=== PATIENT | female | born 1945 | race Caucasian/White ===

== ENCOUNTER 2022-02-25 09:46 | Emergency (ER) | payer MEDICARE ==
[~2022-02-25] VITALS: Ht 157.5 cm; Wt 63.5 kg
[2022-02-25 10:17] LABS: BASOPHILS ABSOLUTE AUTO 0.04 K/mm3 (0.00-0.23); BASOPHILS PERCENT AUTO 1 % (0-2); EOSINOPHILS ABSOLUTE AUTO 0.03 K/mm3 (0.00-0.68); EOSINOPHILS PERCENT AUTO 0 % (0-6); Hematocrit 40.7 % (33.0-51.0); Hemoglobin 13.1 g/dL (11.5-16.0); IMMATURE GRAN ABSOLUTE AUTO 0.02 K/mm3 (0.00-0.10); IMMATURE GRAN PERCENT AUTO 0 % (0-1); LYMPHOCYTES ABSOLUTE AUTO 1.46 K/mm3 (0.84-5.20); LYMPHOCYTES PERCENT AUTO 18 % (21-46); MONOCYTES ABSOLUTE AUTO 0.55 K/mm3 (0.16-1.47); MONOCYTES PERCENT AUTO 7 % (4-13); Mean Corpuscular HGB 27.3 pg (26.0-34.0); Mean Corpuscular HGB Conc 32.2 g/dL (31.5-36.5); Mean Corpuscular Volume 85 fL (80-100); Mean Platelet Volume 10.2 fL (9.1-12.4); NEUTROPHILS ABSOLUTE AUTO 5.85 K/mm3 (1.96-9.15); NEUTROPHILS PERCENT AUTO 74 % (41-73); Platelet Count 328 K/mm3 (150-400); RDW Coefficient Variation 13.2 % (11.7-14.2); RDW Standard Deviation 41.1 fL (35.1-46.3); White Blood Cell Count 7.95 K/mm3 (4.00-11.30)
[2022-02-25 10:47] LABS: Bilirubin, Total 0.5 mg/dL (0.1-1.0); Bun/Creatinine Ratio 23.1 (12.0-20.0); Calcium, Blood 9.4 mg/dL (8.5-10.1); Creatinine, Blood 0.69 mg/dL (0.40-1.00); Potassium, Blood 4.1 mmol/L (3.5-5.5)
[2022-02-25 11:54] LABS: Source, Urine Clean Catch
[2022-02-25 12:00] LABS: Appearance, Urine Clear (Clear); Bilirubin, Urine Neg (Neg); Blood, Urine 1+ (Neg); Color, Urine Yellow (P-Yellow); Glucose Qualitative, Urine Neg (Neg); Ketones, Urine Neg (Neg); Leukocyte Esterase, Urine 1+ (Neg); Nitrite, Urine Neg (Neg); Protein, Urine 1+ (Neg); Specific Gravity, Urine 1.005 (1.003-1.022); Urobilinogen, Urine NORM (Normal)
[2022-02-25 12:08] LABS: Bacteria Rare /hpf; Red Blood Cells, Urine 0-2 /hpf (0-2); Squamous Epithelial Cells Rare /hpf (Few); White Blood Cells, Urine 0-2 /hpf (0-5)
[2022-02-25 12:09] LABS: Transitional Epithelial Cells Rare /hpf (0-Rare)
== END 2022-02-25 14:20 | disposition home or self-care (01) ==
LOC: ER 09:46
PROVIDERS: Physician Assistant
DX: R10.9 Unspecified abdominal pain (principal); R19.09 Other intra-abdominal and pelvic swelling, mass and lump; Z88.2 Allergy status to sulfonamides
CPT/HCPCS: 74177; 80053; 81001; 83690; 85025; 87086; Q9967

== ENCOUNTER 2022-03-14 08:58 | Inpatient (IN) | payer MEDICARE, BC ==
[~2022-03-14] VITALS: Ht 160 cm; Wt 61.2 kg
[2022-03-14 10:19] LABS: BASOPHILS ABSOLUTE AUTO 0.03 K/mm3 (0.00-0.23); BASOPHILS PERCENT AUTO 0 % (0-2); EOSINOPHILS ABSOLUTE AUTO 0.01 K/mm3 (0.00-0.68); EOSINOPHILS PERCENT AUTO 0 % (0-6); Hematocrit 39.5 % (33.0-51.0); Hemoglobin 13.2 g/dL (11.5-16.0); IMMATURE GRAN ABSOLUTE AUTO 0.07 K/mm3 (0.00-0.10); IMMATURE GRAN PERCENT AUTO 1 % (0-1); LYMPHOCYTES ABSOLUTE AUTO 1.01 K/mm3 (0.84-5.20); LYMPHOCYTES PERCENT AUTO 8 % (21-46); MONOCYTES ABSOLUTE AUTO 0.96 K/mm3 (0.16-1.47); MONOCYTES PERCENT AUTO 8 % (4-13); Mean Corpuscular HGB 26.8 pg (26.0-34.0); Mean Corpuscular HGB Conc 33.4 g/dL (31.5-36.5); Mean Corpuscular Volume 80 fL (80-100); Mean Platelet Volume 9.6 fL (9.1-12.4); NEUTROPHILS ABSOLUTE AUTO 10.73 K/mm3 (1.96-9.15); NEUTROPHILS PERCENT AUTO 84 % (41-73); Platelet Count 590 K/mm3 (150-400); RDW Coefficient Variation 12.6 % (11.7-14.2); RDW Standard Deviation 36.8 fL (35.1-46.3); Red Blood Cell Count 4.92 M/mm3 (3.80-5.20); White Blood Cell Count 12.81 K/mm3 (4.00-11.30)
[2022-03-14 10:50] LABS: Albumin, Blood 2.8 g/dL (3.4-5.0); Albumin/Globulin Ratio 0.7 (0.8-1.8); Bilirubin, Total 0.5 mg/dL (0.1-1.0); Bun/Creatinine Ratio 17.5 (12.0-20.0); Creatinine, Blood 0.63 mg/dL (0.40-1.00); Globulin, Blood 4.2 g/dL (2.2-4.0); Potassium, Blood 4.2 mmol/L (3.5-5.5)
--- NOTE | 2022-03-14 19:54 | NUR ---
SHIFT SUMMARY PT IS WAITING FOR DR. STOVALL TO CONSULT. PT IS TOLERATING CLEAR LIQUIDS. PT HAS DENIED PAIN AND NAUSEA SINCE ARRIVING TO THE UNIT. PT IS INDEPENDENT IN THE ROOM. REPORT GIVEN TO EDY ALVES.
--- NOTE | 2022-03-15 04:44 | NUR ---
CEMENT BASED MATERIALS PUMP TENDER SUMMARY PT AAOX4 AND INDEPENDENT IN THE ROOM. PT HAS STILL HAD SOME NAUSEA AND VOMITING OFF/ON THROUGH THE NIGHT, MEDICATED WITH ZOFRAN. PAIN WELL MANAGED WITH 25 MCG OF IV FENTANYL, ONLY HAD TO GIVE ONCE THIS SHIFT. VSS, WILL CONTINUE TO MONITOR.
[2022-03-15 04:49] LABS: Hematocrit 37.8 % (33.0-51.0); Hemoglobin 11.9 g/dL (11.5-16.0); Mean Corpuscular HGB 26.4 pg (26.0-34.0); Mean Corpuscular HGB Conc 31.5 g/dL (31.5-36.5); Mean Corpuscular Volume 84 fL (80-100); Mean Platelet Volume 9.7 fL (9.1-12.4); Platelet Count 540 K/mm3 (150-400); RDW Standard Deviation 39.7 fL (35.1-46.3); White Blood Cell Count 11.13 K/mm3 (4.00-11.30)
[2022-03-15 05:17] LABS: Bun/Creatinine Ratio 15.4 (12.0-20.0); Calcium, Blood 8.8 mg/dL (8.5-10.1); Creatinine, Blood 0.58 mg/dL (0.40-1.00); Potassium, Blood 4.1 mmol/L (3.5-5.5)
--- NOTE | 2022-03-15 09:19 | NUR ---
Reviewed chart and discussed case with Dr Claros including overal prognosis. Spoke with Primary RN Severo and reviewed Dr Sunshine's note. Supportive visit with Pt this AM. Pt resting in bed and is A&O. Engaged in therapeutic listening as Pt expresses concerns regarding her mother and . 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 She relays her understanding of oncologist's conversation. Reviewed current plan of care including plan for careteam to attempt an acute transfer to [facility]. Continued therapeutic listening as Pt reports uncertainty of wanting to transfer to [facility] for the possibility of littel benefit towards her prognosis. Engaged in therapeutic discussion regarding options including option of considering hospice pending her goals and values. Educated on hospice philosophy with V/U made by Pt. Pt requests assistance with speaking to her when he arrives. She expresses appreciation. Spoke with Dr Nicole and discussed case. Palliative Care will F/U for supportive visit when family arrives.
--- NOTE | 2022-03-15 10:37 | NUR ---
F/U visit as Pt's spouse has arrived. Therapeutic listening and emotional support provided as spouse Antonio is intermittently tearful. Reviewed plan of care and answered questions. Discussed goals of care and continued therapeutic listening. Encouraged Pt and spouse to discuss values and fears. Spouse appears to be leaning towards hospice but would like to discuss further with Pt to determine her goals. Pt and spouse express appreciation and report no other concerns at this time. Palliative Care will remain available for supportive visits.
--- NOTE | 2022-03-15 11:05 | NUR ---
Spiritual Care visit. Pt. is awake in bed and welcomes my visit. Spouse is present. Pt. is unsettled about the recent diagnosis, and verbalizes the need to "make decisions." Pt. displays evidence of stress and grief. Listen empathetically and give pastoral care with a comforting presence. Pt. is a woman of [place] and verbalized gratitude for spiritual care as pts. major account manager is out of town on vacation. Established rapport with Pt. and spouse. Prayed for Pt. and will remain available to the family. Pt. and spouse verbalize gratitude for the spiritual care visit.
--- NOTE | 2022-03-15 15:36 | NUR ---
Spoke with Dr Nicole and discussed case. Pt has elected to pursue hospice services. Spoke with Pt and spouse. Pt agreeable to trial low dose Roxanol. Placed comfort care order and Roxanol 5mg SL Q 3 Hours PRN per V/O from Dr Nicole. Will increase Roxanol and add other comfort medications as needed. Spoke with Primary RN Severo and discussed case. Palliative Care will remain available.
--- NOTE | 2022-03-15 16:31 | NUR ---
Spiritual Care visit (Follow up) After recieving notification that Pt. has chosen home hospice, Pt. is awake in bed and spouse Antonio is present. They welcome my visit. Pt. displays evidence of having peace and trust while Antonio displays evidence of acceptance of the confort care decision. Pastoral sexual abuse counsellor with a calming presence is given. [place] with Pt. and spouse. Both verbalize gratitude for the Spiritual Care visit.
--- NOTE | 2022-03-15 16:47 | NUR ---
SHIFT SUMMARY PATIENT ALERT AND ORIENTED. INDEPENDENT TO BATHROOM. TOLERATING SIPS OF CLEAR LIQUIDS. OCCASIONALLY NAUSEATED AND VOMITS. MEDICATED PER EMAR. ABD PAIN IS CONTROLLED WITH IV FENTANYL IN AM, STARTING ORAL ROXANOL THIS AFTERNOON. ABD IS DISTENDED AND TENDER. PATIENT REPORTS FREQUENT BELCHING, NO BM, OCCASIONAL GAS. BT ARE ACTIVE. VOIDING WELL. IV FLUIDS RUNNING. PLAN IS TO DISCHARGE HOME WITH HOSPICE. SPOUSE IS ATTENTIVE AT BEDSIDE.
--- NOTE | 2022-03-15 17:30 | NUR ---
GAVE REPORT TO MAN GIBBS RN ASSUMING CARE OF PATIENT AT THIS TIME.
--- NOTE | 2022-03-15 19:13 | NUR ---
SINCE ASSUMING CARE REQUESTED NAUSEA MED x 1; NO EMESIS. VISITORS TO ROOM. PT QUIET. DENIES NEEDS.
--- NOTE | 2022-03-16 03:30 | NUR ---
SUMMARY NO NEW CHANGES PT MEDICATED ORDERED. PAIN MANAGED WELL. PT HAS BEEN ABLE TO SLEEP. CALL LIGHT IN REACH.
--- NOTE | 2022-03-16 10:32 | NUR ---
Comfort Care Visit Pt resting in bed and is A&O. Pt's spouse at bedside. Offered therapeutic listening and answered questions. Discussed plan to add Fentanyl patch to pain regimen and phenegran for nausea. Pt agreeable to plan. Continued therapeutic visit. Spoke with Primary RN and discussed case. Spoke with Dr Nicole and discussed case. Placed order for Fentanyl patch 25 mcg Q 3 days, Phenegren 12.5 mg ID Q 4 hours PRN, D/C Zofran per V/O from Dr Nicole. Spoke with JOSELYN Ang and discussed case. Palliative Care will remain available for symptom management and supportive visits.
--- NOTE | 2022-03-16 11:45 | NUR ---
Spiritual Care visit. Pt. is awake in bed. Spouse if present, Both wlecome my visit. Pt. is pleasant but spouse is a little unsettled by the prospects of homelife without the Pt. Listen empathetically. Re-establish rapport and give pastoral corporate counsel to both Pt. and spouse. Pt. displays evidence of peace and hope. Spouse verbalizes gratitude for the medical/nurse care they have received. [place] with Pt. and spouse. Both verbalize gratitude for the spiritual care visit.
--- NOTE | 2022-03-16 16:49 | NUR ---
F/U visit this afternoon. Pt sitting on edge of bed and denies pain at this time. She does report experiecing some dyspnea. She denies nausea at this time. Educated on the use of Roxanol to assist with pain and air hunger. Spouse at bedside. Offered therapeutic listening as Pt and spouse report daughter will be here on Sunday and hope to be D/C before she arrives. They report deciding to go with [facility] who plans to admit Pt onto services tomorrow or Sunday. Continued therapeutic listening and answered questions. Palliative Care will remain available.
--- NOTE | 2022-03-16 18:50 | NUR ---
pt has been comfortable this shift. pt pain managed with prn meds. started on fentanyl patch. pt sipping on clear liquids, no emesis or nausea. voiding well. no flatus or bm. pt up to shower indep. palliative care spent extensive time in room. plan for dc to hospice. pt calls appropriately.
--- NOTE | 2022-03-17 05:40 | NUR ---
SUMMARY PT MEDICATED FOR DISCOMFORT WITH RELIEF. PT HAS BEEN SLEEPING THROUGHOUT SHIFT. NO NEW ISSUES NOTED. CALL LIGHT IN REACH.
--- NOTE | 2022-03-17 08:34 | NUR ---
PATIENT IS LAYING IN BED THIS MORNING. DENIES PAIN AT THIS TIME BUT IS AWARE OF THE PRN PAIN MEDICATION. SHE IS DRINKING PEPPERMINT TEA WELL HER BREAKFAST TRAY. CALL LIGHT WITHIN REACH.
--- NOTE | 2022-03-17 08:38 | NUR ---
PATIENT IS A&OX4 THIS MORNING SITTING UP IN BED. PATIENT DENIES PAIN AT THIS TIME. SHE IS TOLERATING HER PEPPERMINT TEA AND BREAKFAST TRAY AT THIS TIME. CALL LIGHT WITHIN REACH.
--- NOTE | 2022-03-17 09:12 | NUR ---
Brief visit this AM. Pt sitting on edge of bed talking on the phone. Pt reports symptoms are currently managed with current regimen. No concerns reported at this time. Spoke with Primary RN Ruth and discussed case. Plan for Pt to D/C home with hospice today. Palliative Care will remain available.
--- NOTE | 2022-03-17 09:51 | NUR ---
PATIENT IS LAYING IN BED WITH AT BEDSIDE. PATIENT REPORTED 4/10 ABD PAIN AND WAS GIVEN THE 5MG OF ROXANOL PO. PATIENT AND DENIED NEEDING ANYTHING ELSE AT THIS TIME. CALL LIGHT WITHIN REACH.
--- NOTE | 2022-03-17 12:19 | NUR ---
DISCHARGE NOTE: PATIENT AND ALREADY TALKED WITH THE HOSPICE PROGRAM AND HAVE EVERYTHING ARRANGED FOR THE PATIENT TO HAVE HOSPICE AT HOME. IV WAS NOT TAKEN OUT SINCE SHE IS TO RECIEVE SHIP JOINER PUMP PAIN MEDICATION WELL IV FLUIDS WHEN AT HOME. PATIENT AND DENIED HAVING ANYMORE QUESTIONS ABOUT HOSPICE AT THIS TIME. PATIENT IS A&OX4. ABD IS DISTENDED BUT IS TO BE EXPECTED PER DIAGNOSIS. PATIENT IS TOLERATING PO INTAKE AND IS VOIDING. PATIENT HAS ALL PERSONAL ITEMS GATHERED AND IS DRESSED. SHE WAS WHEELCHAIRED OUT TO HER HUSBANDS CAR TO BE TAKEN HOME.
== END 2022-03-17 12:00 | disposition hospice, home (50) | DRG 844 ==
LOC: ER 08:58 → SURS 15:23
PROVIDERS: Nurse Practitioner Acute Care; Student in an Organized Health Care Education/Training Program; ADMIT Hospitalist
DX: C79.89 Secondary malignant neoplasm of other specified sites (principal); E87.1 Hypo-osmolality and hyponatremia; R18.0 Malignant ascites; R65.10 Systemic inflammatory response syndrome (SIRS) of non-infectious origin without acute organ dysfunction; C80.1 Malignant (primary) neoplasm, unspecified; Z51.5 Encounter for palliative care; D72.829 Elevated white blood cell count, unspecified; E86.1 Hypovolemia; Z98.890 Other specified postprocedural states; Z88.2 Allergy status to sulfonamides
CPT/HCPCS: 36415; 74177; 80048; 80053; 83605; 83690; 85025; 85027; 96374; 96375; 99285-25; A9270; J1170; J2405; J3010; J7030; Q9967